=== PATIENT | male | born 1980 | race Caucasian/White ===

== ENCOUNTER → 2017-08-06 | Outpatient (CLI) | payer BC ==
[2017-08-06 09:55] LABS: T4, Free (Free Thyroxine) 0.86 ng/dL (0.78-2.19)
--- NOTE | 2017-08-06 12:52 | FL ---
EXAMINATION TYPE: FL barium swallow DATE OF EXAM: 08/06/2017 CLINICAL HISTORY: Dysphagia that is persistent and worsening for multiple years. TECHNIQUE: A double contrast esophagram is performed utilizing air and barium. A total of 1 minute and 3 seconds of fluoroscopic time was utilized during procedure. 98 images were saved. COMPARISON: None FINDINGS: The esophagus shows normal motility and emptying into the stomach. No evidence of hiatal h ernia or stricture noted. No significant gastroesophageal reflux was seen during real time performanc e of this study. A small amount of retention is seen within the piriform sinuses and vallecula, abnor mal for the patient's age. This is seen persistently throughout the examination. IMPRESSION: Small amount of vallecular and piriform sinus retention seen persistently throughout the examination. Speech pathology consultation is recommended.
== END | disposition home or self-care (01) ==
LOC: RADFLWHC 08:38
PROVIDERS: ATTEND Otolaryngology
DX: J38.7 Other diseases of larynx (principal); R53.83 Other fatigue; E06.9 Thyroiditis, unspecified
CPT/HCPCS: 36415; 74220; 84439; 84443; 86376

== ENCOUNTER 2017-08-24 08:14 | Day surgery (SDC) | payer BC ==
[2017-08-22 15:51] VITALS: BMI 27.8
[~2017-08-24 08:14] MED LIST: LACTATED RINGERS 1,000 ML IV SCH; LIDOCAINE 1% 20 ML VIAL (10MG/ML) FOR IV START INTRADERMA PRN
[2017-08-24 08:32] VITALS: RESP 16; TEMP 97.6
--- NOTE | 2017-08-24 09:13 | P.GSHP ---
History of Present Illness H&P Date: 08/24/17 Chief Complaint: GERD This a 37-year-old male referred from Dr. Asha miranda. Patient presents today for EGD. He's had issues with GERD. Past Medical History Past Medical History: Sleep Apnea/CPAP/BIPAP Additional Past Medical History / Comment(s): no cpap used, recent heartburn, borderline cholesterol, History of Any Multi-Drug Resistant Organisms: None Reported Past Surgical History: Appendectomy Past Anesthesia/Blood Transfusion Reactions: No Reported Reaction Smoking Status: Never smoker - Past Family History Mother Family Medical History: No Reported History Medications and Allergies Home Medications Medication Instructions Recorded Confirmed Type Dextroamphetamine/Amphetamine 10 mg PO BID 08/22/17 08/24/17 History [Adderall] Pantoprazole [Protonix] 0 mg PO DAILY PRN 08/22/17 08/24/17 History Allergies Allergy/AdvReac Type Severity Reaction Status Date / Time No Known Allergies Allergy Verified 08/24/17 08:28 Surgical - Exam Vital Signs Temp Pulse Resp BP Pulse Ox 97.6 F 76 16 131/79 99 08/24/17 08:24 08/24/17 08:24 08/24/17 08:24 08/24/17 08:24 08/24/17 08:24 - General well developed, no distress - Eyes PERRL - ENT normal pinna - Neck no masses - Respiratory normal expansion - Cardiovascular Rhythm: regular - Abdomen Abdomen: soft, non tender Assessment and Plan Assessment: GERD. We'll perform EGD.
[2017-08-24] MEDS ORDERED: PROPOFOL 10 MG/ML 20 ML VIAL IV ONE (09:17)
[2017-08-24] MEDS ORDERED: LIDOCAINE 1% INJ 10MG/ML (20 ML MDV) ONE (09:17)
--- NOTE | 2017-08-24 09:27 | P.OP ---
Date of Procedure: 08/24/17 Preoperative Diagnosis: GERD Postoperative Diagnosis: Mild antral gastritis Small sliding hiatal hernia Minimal esophagitis Procedure(s) Performed: EGD Anesthesia: MAC Surgeon: Keith Romero Pathology: other (Antrum, esophagus) Condition: stable Disposition: PACU Description of Procedure: The patient's placed on the endoscopy table in the lateral position. He received IV sedation. The gastroscope placed oropharynx and passed in the esophagus and into the stomach. The scope was then placed through the pylorus. The first and second portion of the duodenum appeared normal. Scope was then brought back the antrum this appeared mildly inflamed. A biopsies performed. The scope was then retroflexed and the remainder some appeared normal. The patient had a small sliding hiatal hernia. The patient was coughing during the procedure in the hiatal hernia could be seen sliding into the thorax. The GE junction was at 38 cm. The distal esophagus was minimal inflamed and a biopsy performed. The proximal esophagus appeared normal. The scope was withdrawn for patient. Due to the patient's minimal findings a HIDA scan was ordered.
[2017-08-24 10:21] VITALS: BP 107/64; PULSE 68
--- NOTE | 2017-08-24 13:25 | NM ---
EXAMINATION TYPE: NM hepatobiliary w CCK DATE OF EXAM: 08/24/2017 COMPARISON: NONE HISTORY: Pain TECHNIQUE: After the intravenous administration of 5.31 mCi Tc 99m Mebrofenin hepatobiliary scintigra phy is performed. Immediate images post injection. FINDINGS: There is satisfactory initial accumulation of tracer by the liver. The gallbladder is visualized wit hin 5 minutes. The small bowel activity is noted within 15 minutes. At one hour CCK was administere d, patient was injected with 1.86 mcg of Kinevac, and gallbladder ejection fraction is calculated at 18 percent. IMPRESSION: Diminished gallbladder ejection fraction which may reflect chronic cholecystitis and/or b iliary dyskinesia.
== END 2017-08-24 10:30 | disposition home or self-care (01) ==
LOC: ORWHC2ENDO 08:14
PROVIDERS: ATTEND Surgery
DX: K21.0 Gastro-esophageal reflux disease with esophagitis (principal); K29.50 Unspecified chronic gastritis without bleeding; K44.9 Diaphragmatic hernia without obstruction or gangrene; R93.2 Abnormal findings on diagnostic imaging of liver and biliary tract; G47.33 Obstructive sleep apnea (adult) (pediatric); Z79.899 Other long term (current) drug therapy
CPT/HCPCS: 88305; 78227; 43239; A9537; J2805; J2001; J2704